=== PATIENT | male | born 1985 | race American Indian/Alaskan Native ===

== ENCOUNTER 2017-05-26 20:54 | Emergency (ER) | payer SELFPAY ==
--- NOTE | 2017-05-26 23:00 | XRay Report ---
FINAL REPORT PROCEDURE: Three-view lumbar spine series TECHNIQUE: Lumbar spine radiographs, including AP, lateral, and lumbosacral spot views. CPT 66798 HISTORY: Trauma. Pain. COMPARISON: No prior studies are available for comparison. FINDINGS: Alignment: Normal. Vertebral body heights/Disk spaces: Normal. Fracture(s): None. Facets: Normal. Bone mineralization: Normal. IMPRESSION: Negative examination.
--- NOTE | 2017-05-27 00:59 | Emergency Department Report ---
HPI - General Chief Complaint: Back Pain/Injury Time Seen by Provider: 05/27/17 00:25 - HPI HPI: Patient is a 32-year-old male with no other medical history presents complaining of lower back pain for the past 2 days. Patient states he was at work and lifted a heavy box and felt a pain in his back yard to have the for return to work. Patient states he had only filled the pH with a heavy box Saturday. Patient states that temperature did not radiate anywhere else He denies fevers/assessment/vomiting/dysuria ED Past Medical Hx - Past Medical History Previous Medical History?: No - Surgical History Past Surgical History?: No - Social History Smoking Status: Never Smoker Substance Use Type: None - Medications Home Medications: Home Medications Medication Instructions Recorded Confirmed Last Taken Type Ibuprofen [Motrin] 600 mg PO Q8H PRN #30 tablet 05/27/17 Unknown Rx ED Review of Systems ROS: Stated complaint: BACK PAIN Other details as noted in HPI Physical Exam - Physical Exam Vital Signs: Vital Signs 05/26/17 21:57 Temperature 98.6 F Pulse Rate 53 L Respiratory 18 Rate Blood Pressure 118/74 O2 Sat by Pulse 100 Oximetry Physical Exam: GENERAL: Alert and oriented x3, no apparent distress, Normal Gait, atraumatic. NECK: Supple. Non edematous, No C-spine tenderness LUNGS: Symetrical with respiration, No wheezing, no rales or crackles, CTAB. HEART: S1, S2 present, regular rate and rhythm without murmur, no rubs, no gallops. Non tender to palpation ABDOMEN: No organomegaly was noted,Positive bowel sounds, soft, and non- distended. . Nontender to palpation on all Quadrants, NO CVA tenderness. Tenderness to palpation of the lowe back mucsles. no spinal tenderness. Full range of motion of the back. EXTREMITIES/MUSCULOSKELETAL: No cyanosis, clubbing, rash, lesions or edema. Full ROM bilaterally. UE/LE Pulses 2+ bilaterally. NEUROLOGIC: The patient is cooperative with no focal neurologic deficits. Normal speech. PSYCHIATRIC: Mood is congruent with affect, denies suicidal or homicidal ideations. SKIN: Warm and dry, No lesions, No ulceration or induration present. ED Course Vital Signs 05/26/17 21:57 Temperature 98.6 F Pulse Rate 53 L Respiratory 18 Rate Blood Pressure 118/74 O2 Sat by Pulse 100 Oximetry ED Medical Decision Making - Medical Decision Making 32-year-old male presents to ED with lower back strain ED course: Patient states he is in no pain at the moment. Discussed with patient per progress and proper lifting techniques. Discussed the patient to follow up with primary care physician. Discussed symptoms worsen to return to ED. Patient is alert and I did tell stays in no acute distress. Critical care attestation.: If time is entered above; I have spent that time in minutes in the direct care of this critically ill patient, excluding procedure time. ED Disposition Clinical Impression: Strain of muscle, fascia and tendon of lower back, initial encounter Disposition: TO HOME OR SELFCARE Is pt being admited?: No Does the pt Need Aspirin: No Condition: Stable Instructions: Muscle Strain (ED), Muscle Cramp (ED), Heat Pack Application (ED) Prescriptions: Ibuprofen [Motrin] 600 mg PO Q8H PRN #30 tablet PRN Reason: Pain Referrals: PRIMARY CARE, [Primary Care Provider] - 3-5 Days [facility] [Outside] - 3-5 Days Forms: Work/School Release Form(ED) Time of Disposition: 00:58
[2017-05-27 01:47] VITALS: BP 125/84
== END 2017-05-27 01:44 | disposition home or self-care (01) ==
LOC: ED 20:54
DX: S39.012A Strain of muscle, fascia and tendon of lower back, initial encounter (principal); X50.0XXA Overexertion from strenuous movement or load, initial encounter; Y93.89 Activity, other specified; Y92.89 Other specified places as the place of occurrence of the external cause; Y99.8 Other external cause status
CPT/HCPCS: 72100; 99283